=== PATIENT | female | born 2000 | race Caucasian/White ===

== ENCOUNTER 2024-11-06 10:30 | Outpatient (RCR) | payer BC, SELFPAY | END 2024-11-06 17:42 | disposition home or self-care (01) | PROVIDERS: Visit Provider Family Medicine | DX: G89.29 Other chronic pain (principal); M25.561 Pain in right knee; Z51.89 Encounter for other specified aftercare | CPT/HCPCS: 97110; 97112; 97161; 97530 ==

== ENCOUNTER 2024-12-04 23:55 | Emergency (ER) | payer BC, SELFPAY ==
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
[2024-12-05 00:19] VITALS: BP 100/65; PULSE 78; RESP 18; TEMP 36.5; O2SAT 98; BMI 55.8
--- NOTE | 2024-12-05 01:29 | CRLHL7_ITS ---
For Patients: As a result of the Century Cures Act, medical imaging exams and procedure reports are released immediately into your electronic medical record. You may view this report before your referring provider. If you have questions, please contact your health care provider. INDICATION: Headache TECHNIQUE: CT Head without i.v. contrast. Coronal and sagittal reformats were obtained. COMPARISON: None FINDINGS: CSF space: The ventricles are normal for age. Brain: No evidence of mass, acute infarction or hemorrhage is seen. No mass-effect or midline shift is seen. The brain parenchyma is otherwise normal in appearance with preservation of the garcia-white matter junction. Calvarium: The visualized paranasal sinuses are well aerated. The mastoid air cells are clear. The visualized orbits are grossly unremarkable. The calvarium is unremarkable in appearance with no fractures identified. IMPRESSION: 1. No evidence of acute infarction, intracranial hemorrhage, or mass-effect seen. Please note that all CT scans at this facility use dose modulation, iterative reconstruction, and/or weight-based dosing when appropriate to reduce radiation dose to as low as reasonably achievable. Dictated by: Albaro Norris MD @ 12/05/2024 01:53:33 Signed by: Albaro Norris MD @ 12/05/2024 1:53:33 AM (Electronic Signature) (Electronically Signed)
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
[2024-12-05 02:09] VITALS: BP 121/70; PULSE 81; RESP 18; TEMP 36.5; O2SAT 98
[2024-12-05 02:13] VITALS: BP 121/70; PULSE 81; RESP 18; TEMP 36.5
--- NOTE | 2024-12-05 03:04 | ED.HA ---
HPI - Headache General Date Seen: 12/05/24 Chief Complaint: Headache/Migraine Stated Complaint: headache Time Seen by Provider: 12/05/24 01:17 Source: patient Mode of arrival: ambulatory Limitations: no limitations History of Present Illness HPI Narrative: Patient is a 24-year-old female comes in with a five year history of pain in her right scientology and a one year history of pain in her left scientology. Today she had pain on both sides simultaneously and tells me that her family thought she should be seen in the ER for evaluation. So far she has been seen in clinic and had a test done for temporal arteritis which was inconclusive. She has been scheduled for a follow-up visit with Neurology that is going to happen in about two weeks. She has never had any imaging. She occasionally takes ibuprofen when the headache is severe. There is no nausea or vomiting. No photophobia or phonophobia. No recent head trauma. She is on control pills and Synthroid for hypothyroidism. She walks with a cane but cannot give me a reason why that is needed. Related Data Home Medications ?Medication ?Instructions ?Recorded ?Confirmed drospirenone 3 mg-ethinyl 1 tab PO DAILY 12/05/24 12/05/24 estradiol 0.03 mg tablet levothyroxine 100 mcg tablet 100 mcg PO QAM 12/05/24 12/05/24 Allergies Allergy/AdvReac Type Severity Reaction Status Date / Time amoxicillin Allergy Mild Unknown Verified 12/05/24 00:27 Sulfa (Sulfonamide Allergy Mild Unknown Verified 12/05/24 00:27 Antibiotics) Review of Systems Narrative: Review of systems is outlined above otherwise noted to be negative. [facility] Medical History Ear infection ?H66.90 - Otitis media, unspecified, unspecified ear (ICD-10) Surgical History H/O wisdom tooth extraction ?K08.409 - Partial loss of teeth, unspecified cause, unspecified class (ICD-10) Social History Smoking Status: Never smoker Do you use any of these nicotine containing products: None How often do you have a drink containing alcohol: never AUDIT-C Alcohol total score: 0 Non-prescribed substance use: denies use Exam Narrative: Exam Narrative: Vitals noted. HEENT: Conjunctiva clear. No palpable thickening of the temporal arteries. No bony tenderness. Tympanic membranes are pearly white bilaterally. Posterior pharynx is clear without erythema or exudate. Neck is supple without adenopathy. Lungs: Clear to auscultation in all jones. No wheezes, rales, rhonchi. Heart: Regular rate and rhythm without murmur. Extremities: No cyanosis or edema. Good distal pulses. Skin: No abnormalities noted of the exposed skin. Neurologic: Awake, alert, fully oriented. Neurologic exam is nonfocal. Const: Vital Signs, click to edit/add: Vital Signs - 24 hr 12/05/24 00:19 12/05/24 02:09 12/05/24 02:13 Temperature 97.7 F 97.7 F 97.7 F Pulse Rate [Right Pulse Oximeter] 78 81 81 Respiratory Rate 18 18 18 Blood Pressure [Ri ght Forearm] 100/65 121/70 121/70 Pulse Oximetry 98 98 Oxygen Delivery Me thod Room Air Room Air Course Course ED Course: Patient seen and examined. She declines the need for any pain medication. CT of the head without contrast is completely normal. We discussed that temporal arteritis would be very unusual at her age. This does not sound typical for migraine. This certainly does not require any emergency treatment. She is discharged to home in unchanged condition and will keep her follow-up appointment with Neurology. Vital Signs Vital signs: Initial Vital Signs Temperature 97.7 F 12/05/24 00:19 Temperature Source Temporal Artery Scan 12/05/24 00:19 Pulse Rate 78 12/05/24 00:19 Respiratory Rate 18 12/05/24 00:19 Blood Pressure 100/65 12/05/24 00:19 Blood Pressure Mean 76 12/05/24 00:19 Blood Pressure Position Sitting 12/05/24 00:19 Pulse Oximetry 98 12/05/24 00:19 Oxygen Delivery Method Room Air 12/05/24 00:19 Vital Signs Temperature 97.7 F 12/05/24 00:19 Pulse Rate 78 12/05/24 00:19 Respiratory Rate 18 12/05/24 00:19 Blood Pressure 100/65 12/05/24 00:19 Pulse Oximetry 98 12/05/24 00:19 Oxygen Delivery Method Room Air 12/05/24 00:19 Temperature 97.7 F 12/05/24 02:13 Pulse Rate 81 12/05/24 02:13 Respiratory Rate 18 12/05/24 02:13 Blood Pressure 121/70 12/05/24 02:13 Pulse Oximetry 98 12/05/24 02:09 Oxygen Delivery Method Room Air 12/05/24 02:09 Discharge Plan Discharge Clinical Impression: Headache Patient Disposition: Home, Self-Care Condition: Stable Additional Instructions: Your head CT is perfectly normal. Tylenol or Ibuprofen for pain. Ice. Massage. Follow up with Neurology as scheduled. Prescriptions: No Action levothyroxine 100 mcg tablet 100 mcg PO QAM drospirenone-ethinyl estradiol 3-0.03 mg tablet 1 tab PO DAILY Follow Up/Referrals: Ai Hi MD [Primary Care Provider, Family Practice] Stand Alone Forms: [facility] Instructions
== END 2024-12-05 02:13 | disposition home or self-care (01) ==
PROVIDERS: Emergency Provider Family Medicine; PCP Family Medicine
DX: R51.9 Headache, unspecified (principal)
CPT/HCPCS: 70450; 99282; 99283